=== PATIENT | male | born 2000 | race Caucasian/White ===

== ENCOUNTER 2023-02-14 20:20 | Emergency (ER) | payer BC, SELFPAY ==
[2023-02-14 20:24] VITALS: BP 123/84; PULSE 88; RESP 18; TEMP 36.4; O2SAT 98; BMI 22.5
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
--- NOTE | 2023-02-14 22:15 | CRLHL7_ITS ---
For Patients: As a result of the Century Cures Act, medical imaging exams and procedure reports are released immediately into your electronic medical record. You may view this report before your referring provider. If you have questions, please contact your health care provider. Indication: Fall, pain, unable to extend arm Technique: Noncontrast CT right elbow Please note that all CT scans at this facility use dose modulation, iterative reconstruction, and/or weight-based dosing when appropriate to reduce radiation dose to as low as reasonably achievable. Comparison: 02/14/2023 Findings: Patient is unable to extend his elbow. I am suspicious of a subtle nondisplaced radial head fracture with associated joint effusion. The distal humerus appears intact as does the proximal ulna. Impression: Suspicion of a nondisplaced radial head fracture. Evaluation is somewhat limited due to inability to fully extend the arm. MRI could be considered for further evaluation. Please note that all CT scans at this facility use dose modulation, iterative reconstruction, and/or weight-based dosing when appropriate to reduce radiation dose to as low as reasonably achievable. Dictated by Alejandro Hernandez MD @ 02/15/2023 4:13:25 AM (Electronically Signed)
[2023-02-14] MEDS: OXYCODONE 5 MG TABLET PO (22:35)
[2023-02-14 23:09] VITALS: BP 118/74; PULSE 79; RESP 18; TEMP 36.8; O2SAT 98
== END 2023-02-14 23:29 | disposition home or self-care (01) ==
PROVIDERS: Emergency Provider Family Medicine
DX: S52.121A Displaced fracture of head of right radius, initial encounter for closed fracture (principal); S80.212A Abrasion, left knee, initial encounter; S80.211A Abrasion, right knee, initial encounter; V19.9XXA Pedal cyclist (driver) (passenger) injured in unspecified traffic accident, initial encounter
CPT/HCPCS: 73080; 73200; 99284; A9270

== ENCOUNTER 2023-07-17 21:05 | Emergency (ER) | payer BC, OTHER, SELFPAY ==
[2023-07-17 21:34] VITALS: BP 123/81; PULSE 83; RESP 16; TEMP 36.7; O2SAT 97; BMI 18.7
--- NOTE | 2023-07-17 22:19 | ED.GENADULT ---
HPI - General Adult General Chief complaint: Abdominal Pain Stated complaint: Lower left abdominal pain-tight Time Seen by Provider: 07/17/23 22:19 History of Present Illness HPI narrative: abd pain, since . Lower middle abd pain. Bowel movements have had blood in them, bright red in color. No bowel movements today. appendix has been removed, no other abd surgeries. heart surgery as a baby 23-year-old man presenting to the emergency department concern of lower abdominal pain and some blood in his stool. Symptoms have been present over the last couple of days. He does report loose stools with questioning not actually diarrheal. Has then had blood tinge in the stool initially and then more blood on wiping. Mom particularly concerned because has just been laying around and noted increasing distention of his abdomen. She would not have been so concerned with just some blood. Has not had a fever. Unknown whether not has hemorrhoids or fissure. Related Data Home Medications Medication Instructions Recorded Confirmed No Known Home Medications 02/14/23 02/14/23 Allergies Allergy/AdvReac Type Severity Reaction Status Date / Time No Known Drug Allergies Allergy Verified 07/17/23 23:35 Review of Systems Status of ROS: Reports: 6 or more systems reviewed and unremarkable except as noted in History and below [facility] Medical History No significant past medical history Surgical History (Updated 02/14/23 @ 21:00 by Santos Larose RN) No significant past surgical history Social History Smoking Status: Never smoker Second hand tobacco smoke exposure: No How often do you have a drink containing alcohol: never How often do you have six or more drinks on one occasion: Never AUDIT-C Alcohol total score: 0 Non-prescribed substance use: denies use Exam Narrative: Exam Narrative: Tall. NAD. Breathing easily. Irregular dentition. Lips are dry. Lungs are clear. Heart in regular rate and rhythm with 1-2/6 mid systolic murmur. Skin is warm and dry. Abdomen is soft. No peritoneal signs but tender generally in the low abdomen. No masses Bowel sounds are present and normal. Deferred anal exam pending other workup per Bryces preference Const: Vital Signs, click to edit/add: Vital Signs - 24 hr 07/17/23 21:34 Temperature 98.0 F Pulse Rate [Left P ulse Oximeter] 83 Respiratory Rate 16 Blood Pressure [Ri ght Upper Arm] 123/81 Pulse Oximetry 97 Oxygen Delivery Me thod Room Air Documenting provider has reviewed patient's vital signs: yes Course Vital Signs Vital signs: Initial Vital Signs Temperature 98.0 F 07/17/23 21:34 Temperature Source Temporal Artery Scan 07/17/23 21:34 Pulse Rate 83 07/17/23 21:34 Pulse Rhythm Regular 07/17/23 21:34 Respiratory Rate 16 07/17/23 21:34 Blood Pressure 123/81 07/17/23 21:34 Blood Pressure Mean 95 07/17/23 21:34 Blood Pressure Position Sitting 07/17/23 21:34 Pulse Oximetry 97 07/17/23 21:34 Oxygen Delivery Method Room Air 07/17/23 21:34 Vital Signs Temperature 98.0 F 07/17/23 21:34 Pulse Rate 83 07/17/23 21:34 Respiratory Rate 16 07/17/23 21:34 Blood Pressure 123/81 07/17/23 21:34 Pulse Oximetry 97 07/17/23 21:34 Oxygen Delivery Method Room Air 07/17/23 21:34 Temperature 98.0 F 07/17/23 21:34 Pulse Rate 83 07/17/23 21:34 Respiratory Rate 16 07/17/23 21:34 Blood Pressure 123/81 07/17/23 21:34 Pulse Oximetry 97 07/17/23 21:34 Oxygen Delivery Method Room Air 07/17/23 21:34 Medications Administered Medications: Discontinued Medications Generic Name Dose Route Start Last Admin Trade Name Freq PRN Reason Stop Dose Admin Sodium Chloride 1,000 mls @ 1,000 mls/hr 07/17/23 22:29 07/17/23 23:38 0.9 % Sodium Chloride 1000 Ml IV 07/17/23 23:28 Infused .Q1H ONE Infusion Ketorolac Tromethamine 30 mg 07/17/23 23:09 07/17/23 23:16 Ketorolac 30 Mg/Ml Inj IVP 07/17/23 23:10 30 mg ONCE ONE Administration Medical Decision Making MDM Narrative Medical decision making narrative: Most likely in this age is describing rectal passage bleeding; but without constipation. Has more significant generalized symptoms however. Colitis is possibility. Diverticulitis possible as well. Enteritis otherwise. No concerning ingestion is noted. No family history of inflammatory bowel disorders or particularly food intolerances. He normally eats very well ?like a horse? according to mom. In this case I feel like would be a good idea to do abdominal imaging as these symptoms are so atypical for bright. Does not seem like typical gastroenteritis or variant of that. Checking labs though as well. Labs were reassuring though CRP was somewhat elevated at 3.5. White count was normal. Hemoglobin 16 Initially not feeling that he needed any pain management but ultimately did ask for some. Had been initiated on a L normal saline and added to this was ketorolac. Overall on reassessment later was notably improved with his pain. IV contrasted CT scan of abdomen and pelvis I did review images. Radiology over-read as below INDICATION: Lower abdominal pain, distention, hematochezia. TECHNIQUE: CT abdomen and pelvis acquired with 74 mL Isovue 370 IV contrast. COMPARISON: None. FINDINGS: Lower chest: No focal consolidation. Liver: No suspicious focal hepatic lesion. Gallbladder and bile ducts: Unremarkable. Pancreas: Unremarkable. Spleen: Unremarkable. Adrenal glands: Unremarkable. Kidneys: Kidneys enhance symmetrically, without hydronephrosis. 2.5 cm fat and soft tissue lesion in the upper pole of the left kidney. Retroperitoneum: Few scattered prominent but subcentimeter aortocaval lymph nodes. Bowel and mesentery: Bowel is not obstructed. No significant ascites. No pneumoperitoneum. Short segment colitis of the mid descending colon. Bladder: Unremarkable for degree of distension. Reproductive organs: No prostatomegaly. Pelvic lymph nodes: No lymphadenopathy. Vessels: Unremarkable. Abdominal wall: No acute abdominal wall abnormality. Bones: No suspicious/aggressive focal osseous lesion. IMPRESSION: 1. Short-segment colitis of the mid descending colon. 2. Few scattered prominent but subcentimeter aortocaval lymph nodes, likely reactive in the absence of a known malignancy. Correlate clinically for any right testicular abnormalities. 3. 2.5 cm fat and soft tissue lesion in the upper pole of the left kidney, likely angiomyolipoma. With findings on CT scan I did discuss with Mahin a genitourinary exam. He agreed. Normally developed testicles without unusual swelling or nodule that I can determine here. No inguinal lymphadenopathy. Did also discuss evaluation for hemorrhoidal tissue or perhaps anal fissure. Mahin would prefer not to do that at this time. I do think findings and CT are explanation for the hematochezia he has been describing and the looser stools. Overall improved. Discussed CT findings and labs. Discussed pain management going forward with Mahin and his mother. See patient discharge plan Lab Data Lab results reviewed: Yes I reviewed the patient's lab results Labs: Lab Results 07/17/23 Range/Units 22:40 WBC 6.43 (4.50-11.00) K/uL RBC 5.03 (4.30-5.90) m/uL Hgb 16.0 (13.5-17.5) gm/dL Hct 46.4 (37.0-53.0) % MCV 92 (80-100) fL MCH 32 (26-34) pg MCHC 35 (32-36) gm/dL RDW Coeff of [place] 11.8 (11.5-15.5) % Plt Count 283 (140-440) K/uL Neut % (Auto) 77.1 H (42.0-72.0) % Lymph % (Auto) 10.1 L (20-44) % [place] % (Auto) 9.2 (0.0-11.0) % Eos % (Auto) 2.2 (0.0-7.0) % Baso % (Auto) 0.6 (0.0-3.0) % Neut # (Auto) 5.00 (1.7-7.0) K/uL Lymph # (Auto) 0.60 L (0.90-2.90) K/uL Norton # (Auto) 0.60 (0.00-0.90) K/UL Eos # (Auto) 0.14 (0.00-0.50) K/uL Baso # (Auto) 0.04 (0.00-0.30) K/uL Abs Immat Gran (auto) 0.05 (0.00-0.30) K/uL Imm/Tot Granulo (auto) 0.8 % Sodium 138 (135-149) mmol/L Potassium 4.0 (3.6-5.1) mmol/L Chloride 101 (96-114) mmol/L Carbon Dioxide 26 (20-32) mmol/L Anion Gap 11 (7-15) mEq/L BUN 14 (5-24) mg/dL Creatinine 0.9 (0.5-1.5) mg/dL Estimated Creat Clear 122.85 Estimated GFR 123 ml/min Glucose 90 (60-115) mg/dL Calcium 9.1 (8.4-10.6) mg/dL C-Reactive Protein 3.5 H (0.5-1.0) mg/dL Discharge Plan Discharge Clinical Impression: Colitis, Abdominal pain Patient Disposition: Home w/ Parent or Adult Condition: Improved Additional Instructions: Focus on hydration. Can take ibuprofen or acetaminophen for pain. Keep in mind that each tablet of [place] from [employer] contains 325 mg of acetaminophen. Please establish care locally. Follow-up if not improved in a week or if pain markedly increased or developing a fever. Prescriptions: No Action No Known Home Medications Follow Up/Referrals: Provider,Not a Local [Primary Care Provider] - Stand Alone Forms: [employer] Info Instructions
--- NOTE | 2023-07-17 22:29 | CRLHL7_ITS ---
For Patients: As a result of the Century Cures Act, medical imaging exams and procedure reports are released immediately into your electronic medical record. You may view this report before your referring provider. If you have questions, please contact your health care provider. INDICATION: Lower abdominal pain, distention, hematochezia. TECHNIQUE: CT abdomen and pelvis acquired with 74 mL Isovue 370 IV contrast. COMPARISON: None. FINDINGS: Lower chest: No focal consolidation. Liver: No suspicious focal hepatic lesion. Gallbladder and bile ducts: Unremarkable. Pancreas: Unremarkable. Spleen: Unremarkable. Adrenal glands: Unremarkable. Kidneys: Kidneys enhance symmetrically, without hydronephrosis. 2.5 cm fat and soft tissue lesion in the upper pole of the left kidney. Retroperitoneum: Few scattered prominent but subcentimeter aortocaval lymph nodes. Bowel and mesentery: Bowel is not obstructed. No significant ascites. No pneumoperitoneum. Short segment colitis of the mid descending colon. Bladder: Unremarkable for degree of distension. Reproductive organs: No prostatomegaly. Pelvic lymph nodes: No lymphadenopathy. Vessels: Unremarkable. Abdominal wall: No acute abdominal wall abnormality. Bones: No suspicious/aggressive focal osseous lesion. IMPRESSION: 1. Short-segment colitis of the mid descending colon. 2. Few scattered prominent but subcentimeter aortocaval lymph nodes, likely reactive in the absence of a known malignancy. Correlate clinically for any right testicular abnormalities. 3. 2.5 cm fat and soft tissue lesion in the upper pole of the left kidney, likely angiomyolipoma. Please note that all CT scans at this facility use dose modulation, iterative reconstruction, and/or weight-based dosing when appropriate to reduce radiation dose to as low as reasonably achievable. Dictated by Sheila De La Rosa MD @ 07/18/2023 12:10:06 AM (Electronically Signed)
[2023-07-17] MEDS: 0.9 % SODIUM CHLORIDE 1000 ml 1,000 ML IV (22:49)
[2023-07-17 23:00] LABS: Basophils Absolute Auto 0.04 K/uL (0.00-0.30); Basophils Percent Auto 0.6 % (0.0-3.0); Eosinophils Absolute Auto 0.14 K/uL (0.00-0.50); Eosinophils Percent Auto 2.2 % (0.0-7.0); Hematocrit 46.4 % (37.0-53.0); Immature Granulocytes Abs Auto 0.05 K/uL (0.00-0.30); Immature Granulocytes Pct Auto 0.8 %; Lymphocytes Percent Auto 10.1 % (20-44); Mean Corpuscular HGB Conc 35 gm/dL (32-36); Mean Corpuscular Hemoglobin 32 pg (26-34); Mean Corpuscular Volume 92 fL (80-100); Monocytes Percent Auto 9.2 % (0.0-11.0); Neutrophils Percent Auto 77.1 % (42.0-72.0); Platelet Count* 283 K/uL (140-440); RDW Coefficient of Variation % 11.8 % (11.5-15.5); Red Blood Count 5.03 m/uL (4.30-5.90); White Blood Count* 6.43 K/uL (4.50-11.00)
[2023-07-17 23:02] LABS: Slide Review Reflex No
[2023-07-17 23:06] LABS: Chloride* 101 mmol/L (96-114); Sodium* 138 mmol/L (135-149)
[2023-07-17 23:08] LABS: Creatinine* 0.9 mg/dL (0.5-1.5); Est. Creatinine Clearance* 122.85; Estimated Glomerular Filt Rate 123 ml/min
[2023-07-17 23:09] LABS: Anion Gap 11 mEq/L (7-15); Blood Urea Nitrogen* 14 mg/dL (5-24); Calcium* 9.1 mg/dL (8.4-10.6); Carbon Dioxide* 26 mmol/L (20-32); Glucose* 90 mg/dL (60-115)
[2023-07-17 23:12] LABS: C Reactive Protein* 3.5 mg/dL (0.5-1.0)
[2023-07-17] MEDS: KETOROLAC 30 MG/ML inj IVP (23:16)
== END 2023-07-18 01:16 | disposition home or self-care (01) ==
PROVIDERS: Emergency Provider Family Medicine
DX: K52.9 Noninfective gastroenteritis and colitis, unspecified (principal); R10.9 Unspecified abdominal pain
CPT/HCPCS: 36415; 74177; 80048; 85025; 86140; 96374; 99284; 99285; J1885; J7030; Q9967